=== PATIENT | male | born 1975 | race Caucasian/White ===

== ENCOUNTER 2017-05-17 17:44 | Emergency (ER) | payer OTHER, SELFPAY ==
[2017-05-17 18:37] LABS: Hemoglobin 16.5 g/dL (14.0-18.0); Lymphocytes 46 % (21-51); MDiff Complete? YES; Mean Corpuscular HGB CONC 34.8 g/dL (32.0-36.0); Mean Corpuscular Hemoglobin 32.6 pg (27.0-31.0); Mean Corpuscular Volume 93.7 fl (80.0-94.0); Mean Platelet Volume 7.7 fL (7.4-10.4); Monocytes 12 % (0-10); Neutrophil 37 % (42-75); PLT Morphology Comment Appears Adequate; Platelet Count 216 thou/uL (130-400); RBC Distribution Width 10.2 % (11.5-14.5); Reactive Lymphocytes 2 % (0-10); Red Blood Cell (RBC) Count 5.06 mill/uL (4.70-6.10); White Blood Cell (WBC) Count 7.1 thou/uL (4.8-10.8)
[2017-05-17 18:44] LABS: ALT (SGPT) 46 U/L (8-55); AST (SGOT) 33 U/L (5-34); Albumin 4.3 g/dL (3.5-5.0); Alkaline Phosphatase 31 U/L (40-150); Anion Gap 14 mmol/L (10-20); BUN (Urea Nitrogen) 17 mg/dL (8.9-20.6); Bilirubin, Total 0.3 mg/dL (0.2-1.2); CK (CPK) 317 U/L (30-200); Calc. Creatinine Clearance 0 mL/min (70-130); Calcium 9.5 mg/dL (7.8-10.44); Carbon Dioxide 24 mmol/L (22-29); Chloride 105 mmol/L (98-107); Estimated GFR-MDRD 89; Globulin 2.5 g/dL (2.4-3.5); Glucose 95 mg/dL (70-105); Potassium 3.8 mmol/L (3.5-5.1); Protein, Total 6.8 g/dL (6.0-8.3); Sodium 139 mmol/L (136-145)
[2017-05-17 18:45] LABS: CKMB 2.4 ng/mL (0-6.6); Troponin I 0.025 ng/mL (< 0.028)
--- NOTE | 2017-05-17 19:54 | RAD ---
PORTABLE CHEST: 05/17/17 HISTORY: Chest pain. Heart size and mediastinum are within normal limits. The lungs are clear of any infiltrative process. No significant bony findings. IMPRESSION: No active intrathoracic disease. POS: [facility]
== END 2017-05-17 19:03 | disposition home or self-care (01) ==
LOC: SCSER 17:44
DX: R07.9 Chest pain, unspecified (principal); F41.9 Anxiety disorder, unspecified; F31.9 Bipolar disorder, unspecified; Z79.899 Other long term (current) drug therapy
CPT/HCPCS: 36415; 71045; 80053; 82550; 82553; 84484; 85025; 93005

== ENCOUNTER 2018-06-11 12:19 | Emergency (ER) | payer SELFPAY ==
[~2018-06-11 12:19] MED LIST: Iopamidol 370 76% 100 ML VIAL ONE
[2018-06-11] MEDS ORDERED: Ondansetron ODT 4 MG TAB ONE (13:12)
[2018-06-11 13:39] LABS: #Basophils 0.1 thou/uL (0.0-0.2); #Eosinphils 0.1 thou/uL (0.0-0.7); #Lymphocytes 2.3 thou/uL (1.20-3.40); #Monocytes 0.6 thou/uL (0.11-0.59); #Neutrophils 3.7 thou/uL (1.40-6.50); %Basophils 1.4 % (0.0-1.0); %Eosinophils 1.2 % (0.0-10.0); %Lymphocytes 34.6 % (21.0-51.0); %Monocytes 8.6 % (0.0-10.0); %Neutrophils 54.2 % (42.0-75.0); Hemoglobin 18.6 g/dL (14.0-18.0); Mean Corpuscular HGB CONC 33.8 g/dL (32.0-36.0); Mean Corpuscular Hemoglobin 32.6 pg (27.0-31.0); Mean Corpuscular Volume 96.3 fL (78.0-98.0); Mean Platelet Volume 7.7 fL (7.4-10.4); Platelet Count 256 thou/uL (130-400); RBC Distribution Width 11.1 % (11.5-14.5); Red Blood Cell (RBC) Count 5.71 mill/uL (4.70-6.10); White Blood Cell (WBC) Count 6.7 thou/uL (4.8-10.8)
[2018-06-11 13:42] LABS: ALT (SGPT) 19 U/L (8-55); AST (SGOT) 15 U/L (5-34); Albumin 4.6 g/dL (3.5-5.0); Alkaline Phosphatase 29 U/L (40-150); Anion Gap 14 mmol/L (10-20); BUN (Urea Nitrogen) 6 mg/dL (8.9-20.6); Bilirubin, Total 0.8 mg/dL (0.2-1.2); Calc. Creatinine Clearance 0 mL/min (70-130); Calcium 10.1 mg/dL (7.8-10.44); Carbon Dioxide 28 mmol/L (22-29); Chloride 100 mmol/L (98-107); Estimated GFR-MDRD 90; Globulin 2.5 g/dL (2.4-3.5); Glucose 102 mg/dL (70-105); Lipase 14 U/L (8-78); Potassium 4.3 mmol/L (3.5-5.1); Protein, Total 7.1 g/dL (6.0-8.3); Sodium 138 mmol/L (136-145)
--- NOTE | 2018-06-11 14:56 | CT ---
CT OF ABDOMEN AND PELVIS PERFORMED WITH CONTRAST ENHANCEMENT: HISTORY: Abdominal pain onset 5 days ago. FINDINGS: The lung bases are clear of any infiltrative process. The liver, spleen, and pancreas regions appear unremarkable. There is some subtle increased attenuat ion within the gallbladder raising the possibility of stones or sludge. . Right and left adrenal glands and right and left kidneys are normal in appearance. There is no sign ificant periaortic or mesenteric adenopathy identified. CT OF PELVIS PERFORMED WITH CONTRAST ENHANCEMENT. The appendix is normal. There is no evidence of adenopathy, mass, or free fluid. Review of osseous structures shows no significant findings. IMPRESSION: Slight increased attenuation within the gallbladder lumen. Clinical correlation as to any gallbladde r symptoms. If indicated, ultrasound would be recommended. Otherwise, unremarkable CT of the abdome n and pelvis. POS: [facility]
[2018-06-11] MEDS ORDERED: Morphine 4 MG/ML VIAL ONE (14:57)
[2018-06-11 15:09] LABS: Bilirubin Negative (Negative); Blood, Urine Negative (Negative); Clarity Clear (Clear); Glucose, Urine (Dipstick) Negative (Negative); Leukocyte Negative (Negative); Nitrite Negative (Negative); Protein, Urine (Dipstick) Negative (Neg-Trace)
--- NOTE | 2018-06-11 16:13 | ULT ---
RIGHT UPPER QUADRANT ULTRASOUND: Date: 06-11-18 Provided Clinical History: Abdominal pain. FINDINGS: Pancreas is largely obscured. The IVC appears normal as visualized. The liver demonstrates no evidenc e for mass or intrahepatic biliary ductal dilatation. The gallbladder demonstrates no stones, wall th ickening or pericholecystic fluid. Sonographic Brownlee's sign is documented as negative. The right kid earnest demonstrates no evidence for hydronephrosis or mass. IMPRESSION: Unremarkable right upper quadrant ultrasound. POS: [facility]
== END 2018-06-11 16:30 | disposition home or self-care (01) ==
LOC: EEVIPCON 12:19 → SCSER 12:19
DX: R10.11 Right upper quadrant pain (principal); F41.9 Anxiety disorder, unspecified; F31.9 Bipolar disorder, unspecified
CPT/HCPCS: 74177; 76705; 80053; 81003; 83690; 85025; 96361; 96372; 96374; J0500; J2270; Q0162; Q9967

== ENCOUNTER 2022-06-24 15:14 | Emergency (ER) | payer OTHER, SELFPAY ==
[~2022-06-24 15:14] MED LIST changes: +ISOVUE-370 76%-LOCM 1 ML ONE; -Iopamidol 370 76% 100 ML VIAL ONE
[2022-06-24] MEDS ORDERED: FENTANYL 50 MCG/ML 1 ML VIAL ONE ×4 (15:24→18:17)
[2022-06-24 17:41] LABS: #Basophils 0.1 thou/uL (0.0-0.2); #Eosinphils 0.1 thou/uL (0.0-0.7); #Lymphocytes 1.4 thou/uL (1.20-3.40); #Monocytes 1.1 thou/uL (0.11-0.59); #Neutrophils 15.5 thou/uL (1.40-6.50); %Basophils 0.5 % (0.0-1.0); %Eosinophils 0.3 % (0.0-10.0); %Lymphocytes 7.7 % (21.0-51.0); %Monocytes 5.8 % (0.0-10.0); %Neutrophils 85.7 % (42.0-75.0); Hemoglobin 17.2 g/dL (14.0-18.0); Mean Corpuscular HGB CONC 33.5 g/dL (32.0-36.0); Mean Corpuscular Hemoglobin 33.6 pg (27.0-31.0); Mean Platelet Volume 7.8 fL (7.4-10.4); Platelet Count 209 10x3/uL (130-400); RBC Distribution Width 11.9 % (11.5-14.5); Red Blood Cell (RBC) Count 5.14 mill/uL (4.70-6.10); White Blood Cell (WBC) Count 18.1 10x3/uL (4.8-10.8)
[2022-06-24 18:02] LABS: ALT (SGPT) 43 U/L (8-55); AST (SGOT) 51 U/L (5-34); Alkaline Phosphatase 28 U/L (40-110); Anion Gap 17 mmol/L (10-20); BUN (Urea Nitrogen) 14 mg/dL (8.9-20.6); Bilirubin, Total 0.5 mg/dL (0.2-1.2); Calc. Creatinine Clearance 0 mL/min (70-130); Calcium 9.1 mg/dL (7.8-10.44); Carbon Dioxide 20 mmol/L (22-29); Chloride 105 mmol/L (98-107); Estimated GFR 96; Globulin 2.5 g/dL (2.4-3.5); Glucose 106 mg/dL (70-105); Potassium 3.7 mmol/L (3.5-5.1); Protein, Total 6.5 g/dL (6.0-8.3); Sodium 138 mmol/L (136-145)
[2022-06-24] MEDS ORDERED: Boostrix 0.5 ML (Tdap) VIAL (>/=7 yrs of age) ONE (18:28)
[2022-06-24] MEDS ORDERED: Morphine 4 MG/ML VIAL ONE ×2 (19:20→20:32)
== END 2022-06-24 21:39 | disposition short-term general hospital (02) ==
LOC: ERS 15:14
DX: S32.421A Displaced fracture of posterior wall of right acetabulum, initial encounter for closed fracture (principal); S73.014A Posterior dislocation of right hip, initial encounter; S22.31XA Fracture of one rib, right side, initial encounter for closed fracture; S62.652A Nondisplaced fracture of middle phalanx of right middle finger, initial encounter for closed fracture; D72.829 Elevated white blood cell count, unspecified; V89.2XXA Person injured in unspecified motor-vehicle accident, traffic, initial encounter; Z23 Encounter for immunization
CPT/HCPCS: 36415; 70450; 70486; 71260; 72125; 74177; 80053; 85025; 90471; 90715; 96374; 96375; 96376; J2270; J3010; Q9966